=== PATIENT | male | born 1975 | race American Indian/Alaskan Native ===

== ENCOUNTER 2018-03-12 20:37 | Emergency (ER) | payer SELFPAY ==
[2018-03-12 21:30] LABS: Basophils % (Auto) 0.3 % (0.0-1.8); Eosinophils % (Auto) 0.1 % (0.0-4.3); Hematocrit 48.8 % (35.5-45.6); Hemoglobin 16.2 gm/dl (11.8-15.2); Lymphocytes # (Auto) 2.3 K/mm3 (1.2-5.4); Lymphocytes % (Auto) 18.9 % (13.4-35.0); Mean Corpuscular HGB Conc 33 % (32-34); Mean Corpuscular Volume 86 fl (84-94); Monocytes # (Auto) 0.9 K/mm3 (0.0-0.8); Monocytes % (Auto) 7.3 % (0.0-7.3); Platelet Count 303 K/mm3 (140-440); Red Blood Count 5.68 M/mm3 (3.65-5.03); Red Cell Distribution Width 14.1 % (13.2-15.2)
[2018-03-12 21:33] LABS: Amphetamine Screen,Urine PRESUMPTIVE NEGATIVE; Benzodiazepines Screen,Urine PRESUMPTIVE NEGATIVE; Cannabinoid Screen,Urine PRESUMPTIVE NEGATIVE; Cocaine Screen,Urine PRESUMPTIVE NEGATIVE; Methadone Screen,Urine PRESUMPTIVE NEGATIVE; Opiate Screen,Urine PRESUMPTIVE NEGATIVE
[2018-03-12 21:34] LABS: Bacteria,Urine 1+ /HPF (Negative); Bilirubin,Urine NEG (Negative); Blood,Urine NEG (Negative); Color,Urine Amber (Yellow); Mucus,Urine 2+ /HPF
[2018-03-12 21:44] LABS: BUN/Creatinine Ratio 18; Blood Urea Nitrogen 24 mg/dL (9-20); Calcium 9.7 mg/dL (8.4-10.2); Hemolysis Index 11
--- NOTE | 2018-03-12 22:12 | Emergency Department Report ---
ED Psych HPI - General Chief Complaint: Psych Stated Complaint: MH Time Seen by Provider: 03/12/18 21:21 Source: patient Mode of arrival: Ambulatory Limitations: No Limitations - History of Present Illness Initial Comments: 42-year-old male with a past medical history of schizophrenia and bipolar disorder presents also complains of worsening depression and hallucinations for several months. Patient works at a [employer] and states that starting to int erfere with his ability perform his job. He has auditory hallucinations of people moaning and also visual hallucinations. He denies suicidal or homicidal ideation. He denies any physical complaints. He is not taking any psychiatric medications for several months. - Related Data Previous Rx's Medication Instructions Recorded Last Taken Type Cyclobenzaprine [Flexeril] 10 mg PO TID PRN #20 tablet 02/28/18 Unknown Rx traMADol [Ultram] 50 mg PO Q6HR PRN #20 tablet 02/28/18 Unknown Rx Allergies Allergy/AdvReac Type Severity Reaction Status Date / Time No Known Allergies Allergy Unverified 02/28/18 12:48 ED Review of Systems ROS: Stated complaint: MH Other details as noted in HPI Comment: All other systems reviewed and negative ED Past Medical Hx - Past Medical History Previous Medical History?: Yes Hx Psychiatric Treatment: Yes (schizophrenia and bipolar) - Surgical History Past Surgical History?: Yes Hx Appendectomy: Yes - Social History Smoking Status: Current Some Day Smoker Substance Use Type: None - Medications Home Medications: Home Medications Medication Instructions Recorded Confirmed Last Taken Type Cyclobenzaprine [Flexeril] 10 mg PO TID PRN #20 tablet 02/28/18 03/13/18 Unknown Rx traMADol [Ultram] 50 mg PO Q6HR PRN #20 tablet 02/28/18 03/13/18 Unknown Rx ED Physical Exam - General Limitations: No Limitations - Other Other exam information: General: No limitations, patient is alert in no acute distress Head exam: Atraumatic, normocephalic Eyes exam: Normal appearance ENT: Moist mucous membrane Neck exam: Normal inspection, full range of motion, no meningismus nontender Respiratory exam: Clear to auscultation bilateral, no wheezes, rales, crackles Cardiovascular: Normal rate and rhythm, normal heart sounds Abdomen: Soft, nondistended, and nontender, with normal bowel sounds, no rebound, or guarding Extremity: Full range of motion normal inspection no deformity Back: Normal Inspection, full range of motion, no tenderness Neurologic: Alert, oriented x3, cranial nerves intact, no motor or sensory deficit Psychiatric: normal affect, normal mood Skin: Warm, dry, intact ED Course Vital Signs 03/12/18 03/13/18 21:02 02:08 Temperature 98.6 F 98.8 F Pulse Rate 99 H 96 H Respiratory 18 Rate Blood Pressure 149/96 Blood Pressure 131/90 [Left] O2 Sat by Pulse 96 96 Oximetry - Consultations Consultation #1: 03/13/18 00:43 pt expressed to evaluation Rolando that he is not currently suicidal plans had fleeting thoughts of suicide and feels like if he doesn't get help sewn he will be suicidal. 1013 was signed ED Medical Decision Making - Lab Data Result diagrams: 03/12/18 21:17 03/12/18 21:17 Lab Results 03/12/18 03/12/18 03/12/18 Range/Units 21:15 21:15 21:17 WBC (4.5-11.0) K/mm3 RBC (3.65-5.03) M/mm3 Hgb (11.8-15.2) gm/dl Hct (35.5-45.6) % MCV (84-94) fl MCH (28-32) pg MCHC (32-34) % RDW (13.2-15.2) % Plt Count (140-440) K/mm3 Lymph % (Auto) (13.4-35.0) % [place] % (Auto) (0.0-7.3) % Eos % (Auto) (0.0-4.3) % Baso % (Auto) (0.0-1.8) % Lymph # (1.2-5.4) K/mm3 [place] # (0.0-0.8) K/mm3 Eos # (0.0-0.4) K/mm3 Baso # (0.0-0.1) K/mm3 Seg Neutrophils % (40.0-70.0) % Seg Neutrophils # (1.8-7.7) K/mm3 Sodium (137-145) mmol/L Potassium (3.6-5.0) mmol/L Chloride (98-107) mmol/L Carbon Dioxide (22-30) mmol/L Anion Gap mmol/L BUN (9-20) mg/dL Creatinine (0.8-1.5) mg/dL Estimated GFR ml/min BUN/Creatinine Ratio % Glucose (75-100) mg/dL Calcium (8.4-10.2) mg/dL Urine Color [place] (Yellow) Urine Turbidity Slightly-cloudy (Clear) Urine pH 5.0 (5.0-7.0) Ur Specific [place] 1.034 H (1.003-1.030) Urine Protein 100 mg/dl (Negative) mg/dL Urine Glucose (UA) Neg (Negative) mg/dL Urine Ketones 80 (Negative) mg/dL Urine Blood Neg (Negative) Urine Nitrite Neg (Negative) Urine Bilirubin Neg (Negative) Urine Urobilinogen 4.0 (<2.0) mg/dL Ur Leukocyte Esterase Mod (Negative) Urine WBC (Auto) 61.0 H (0.0-6.0) /HPF Urine RBC (Auto) 10.0 (0.0-6.0) /HPF U Epithel Cells (Auto) 2.0 (0-13.0) /HPF Urine Bacteria (Auto) 1+ (Negative) /HPF Urine Mucus 2+ /HPF Salicylates < 0.3 L (2.8-20.0) mg/dL Urine Opiates Screen Presumptive negative Urine Methadone Screen Presumptive negative Acetaminophen (10.0-30.0) ug/mL Ur Barbiturates Screen Presumptive negative Ur Phencyclidine Scrn Presumptive negative Ur Amphetamines Screen Presumptive negative U Benzodiazepines Scrn Presumptive negative Urine Cocaine Screen Presumptive negative U Marijuana (THC) Screen Presumptive negative Drugs of Abuse Note Disclamer Plasma/Serum Alcohol (0-0.07) % 03/12/18 03/12/18 03/12/18 Range/Units 21:17 21:17 21:17 WBC (4.5-11.0) K/mm3 RBC (3.65-5.03) M/mm3 Hgb (11.8-15.2) gm/dl Hct (35.5-45.6) % MCV (84-94) fl MCH (28-32) pg MCHC (32-34) % RDW (13.2-15.2) % Plt Count (140-440) K/mm3 Lymph % (Auto) (13.4-35.0) % [place] % (Auto) (0.0-7.3) % Eos % (Auto) (0.0-4.3) % Baso % (Auto) (0.0-1.8) % Lymph # (1.2-5.4) K/mm3 [place] # (0.0-0.8) K/mm3 Eos # (0.0-0.4) K/mm3 Baso # (0.0-0.1) K/mm3 Seg Neutrophils % (40.0-70.0) % Seg Neutrophils # (1.8-7.7) K/mm3 Sodium 140 (137-145) mmol/L Potassium 4.3 (3.6-5.0) mmol/L Chloride 102.7 (98-107) mmol/L Carbon Dioxide 21 L (22-30) mmol/L Anion Gap 21 mmol/L BUN 24 H (9-20) mg/dL Creatinine 1.3 (0.8-1.5) mg/dL Estimated GFR > 60 ml/min BUN/Creatinine Ratio 18 % Glucose 104 H (75-100) mg/dL Calcium 9.7 (8.4-10.2) mg/dL Urine Color (Yellow) Urine Turbidity (Clear) Urine pH (5.0-7.0) Ur Specific [place] (1.003-1.030) Urine Protein (Negative) mg/dL Urine Glucose (UA) (Negative) mg/dL Urine Ketones (Negative) mg/dL Urine Blood (Negative) Urine Nitrite (Negative) Urine Bilirubin (Negative) Urine Urobilinogen (<2.0) mg/dL Ur Leukocyte Esterase (Negative) Urine WBC (Auto) (0.0-6.0) /HPF Urine RBC (Auto) (0.0-6.0) /HPF U Epithel Cells (Auto) (0-13.0) /HPF Urine Bacteria (Auto) (Negative) /HPF Urine Mucus /HPF Salicylates (2.8-20.0) mg/dL Urine Opiates Screen Urine Methadone Screen Acetaminophen < 5.0 L (10.0-30.0) ug/mL Ur Barbiturates Screen Ur Phencyclidine Scrn Ur Amphetamines Screen U Benzodiazepines Scrn Urine Cocaine Screen U Marijuana (THC) Screen Drugs of Abuse Note Plasma/Serum Alcohol < 0.01 (0-0.07) % 03/12/18 Range/Units 21:17 WBC 12.4 H (4.5-11.0) K/mm3 RBC 5.68 H (3.65-5.03) M/mm3 Hgb 16.2 H (11.8-15.2) gm/dl Hct 48.8 H (35.5-45.6) % MCV 86 (84-94) fl MCH 29 (28-32) pg MCHC 33 (32-34) % RDW 14.1 (13.2-15.2) % Plt Count 303 (140-440) K/mm3 Lymph % (Auto) 18.9 (13.4-35.0) % [place] % (Auto) 7.3 (0.0-7.3) % Eos % (Auto) 0.1 (0.0-4.3) % Baso % (Auto) 0.3 (0.0-1.8) % Lymph # 2.3 (1.2-5.4) K/mm3 [place] # 0.9 H (0.0-0.8) K/mm3 Eos # 0.0 (0.0-0.4) K/mm3 Baso # 0.0 (0.0-0.1) K/mm3 Seg Neutrophils % 73.4 H (40.0-70.0) % Seg Neutrophils # 9.1 H (1.8-7.7) K/mm3 Sodium (137-145) mmol/L Potassium (3.6-5.0) mmol/L Chloride (98-107) mmol/L Carbon Dioxide (22-30) mmol/L Anion Gap mmol/L BUN (9-20) mg/dL Creatinine (0.8-1.5) mg/dL Estimated GFR ml/min BUN/Creatinine Ratio % Glucose (75-100) mg/dL Calcium (8.4-10.2) mg/dL Urine Color (Yellow) Urine Turbidity (Clear) Urine pH (5.0-7.0) Ur Specific [place] (1.003-1.030) Urine Protein (Negative) mg/dL Urine Glucose (UA) (Negative) mg/dL Urine Ketones (Negative) mg/dL Urine Blood (Negative) Urine Nitrite (Negative) Urine Bilirubin (Negative) Urine Urobilinogen (<2.0) mg/dL Ur Leukocyte Esterase (Negative) Urine WBC (Auto) (0.0-6.0) /HPF Urine RBC (Auto) (0.0-6.0) /HPF U Epithel Cells (Auto) (0-13.0) /HPF Urine Bacteria (Auto) (Negative) /HPF Urine Mucus /HPF Salicylates (2.8-20.0) mg/dL Urine Opiates Screen Urine Methadone Screen Acetaminophen (10.0-30.0) ug/mL Ur Barbiturates Screen Ur Phencyclidine Scrn Ur Amphetamines Screen U Benzodiazepines Scrn Urine Cocaine Screen U Marijuana (THC) Screen Drugs of Abuse Note Plasma/Serum Alcohol (0-0.07) % - Medical Decision Making Urine and BMP indicating mild dehydration. By mouth fluids intake encouraged. Bactrim order for UTI awaiting Psychiatric evaluation - Differential Diagnosis psychosis, noncompliance, depression Critical Care Time: No Critical care attestation.: If time is entered above; I have spent that time in minutes in the direct care of this critically ill patient, excluding procedure time. ED Disposition Clinical Impression: Psychosis, Suicidal thoughts, Noncompliance with medication regimen, Bipolar disease, chronic, Depressed, Schizophrenia, UTI (urinary tract infection) Disposition: OP ADMIT IP TO THIS HOSP Is pt being admited?: No Condition: Stable Time of Disposition: 05:57 (awaiting acceptance)
[2018-03-13] MEDS: BACTRIM DS PO SCH ×3 (01:58→21:51)
--- NOTE | 2018-03-13 14:04 | Consultation ---
History of Present Illness - Reason for Consult Consult date: 03/13/18 Reason for consult: Initial Psychiatric Evaluation - Chief Complaint Chief complaint: " voices" - History of Present Psychiatric Illness Patient is a 42-year-old male with a past psychiatric history of schizoaffective disorder, bipolar type. Patient presents to the emergency room with auditory hallucinations. Today the patient is guarded with thought blocking during the assessment. Patient unable to express his thoughts. Limited speech noted. Appears paranoid- looking around as if he is suspicious of others. Per record patient works at a [employer] and states that starting to interfere with his ability perform his job. He has auditory hallucinations of people moaning and visual hallucinations. Will reattempt to assess patient on 03-14-17. Per staff patient appears paranoid. Current Psychiatric Medications: Unable to Assess. Past Psychiatric History: Unable to Assess. Past Psychiatric Medication Trials: Unable to Assess. History of Trauma/Abuse: Unable to Assess. History of Drug/ Alcohol Abuse: Unable to Assess. UDS negative. Social History: Unable to Assess. Family History of Psychiatric Illness/ Substance Abuse: Unable to Assess. Medications and Allergies Allergies Allergy/AdvReac Type Severity Reaction Status Date / Time No Known Allergies Allergy Unverified 02/28/18 12:48 Home Medications Medication Instructions Recorded Confirmed Last Taken Type Cyclobenzaprine [Flexeril] 10 mg PO TID PRN #20 tablet 02/28/18 03/13/18 Unknown Rx traMADol [Ultram] 50 mg PO Q6HR PRN #20 tablet 02/28/18 03/13/18 Unknown Rx Active Meds: Active Medications Trimethoprim/Sulfamethoxazole (Bactrim Ds) 1 each PO Q12HR DANILO Stop: 03/17/18 10:01 Last Admin: 03/13/18 10:43 Dose: 1 each Documented by: Mental Status Exam - Vital signs Last Vital Signs Temp 98.8 F 03/13/18 02:08 Pulse 96 H 03/13/18 02:08 Resp 18 03/13/18 02:08 BP 131/90 03/13/18 02:08 Pulse Ox 96 03/13/18 02:08 - Exam Narrative exam: Mental Status Exam Appearance: dressed- hospital gown Behavior: regular eye contact Speech: mute Mood: unable to assess Affect: unable to assess Thought Process: thought blocking Thought Content: + AH's, paranoid delusions Motor Activity: ambulatory/retarded Cognition: alert; unable to assess orientation Insight: variable Judgment: variable Results Result Diagrams: 03/12/18 21:17 03/12/18 21:17 Abnormal lab results 03/12/18 03/12/18 03/12/18 Range/Units 21:15 21:17 21:17 WBC (4.5-11.0) K/mm3 RBC (3.65-5.03) M/mm3 Hgb (11.8-15.2) gm/dl Hct (35.5-45.6) % [place] # (0.0-0.8) K/mm3 Seg Neutrophils % (40.0-70.0) % Seg Neutrophils # (1.8-7.7) K/mm3 Carbon Dioxide (22-30) mmol/L BUN (9-20) mg/dL Glucose (75-100) mg/dL POC Glucose (70-105) Ur Specific [place] 1.034 H (1.003-1.030) Urine WBC (Auto) 61.0 H (0.0-6.0) /HPF Salicylates < 0.3 L (2.8-20.0) mg/dL Acetaminophen < 5.0 L (10.0-30.0) ug/mL 03/12/18 03/12/18 03/13/18 Range/Units 21:17 21:17 08:15 WBC 12.4 H (4.5-11.0) K/mm3 RBC 5.68 H (3.65-5.03) M/mm3 Hgb 16.2 H (11.8-15.2) gm/dl Hct 48.8 H (35.5-45.6) % Simpson # 0.9 H (0.0-0.8) K/mm3 Seg Neutrophils % 73.4 H (40.0-70.0) % Seg Neutrophils # 9.1 H (1.8-7.7) K/mm3 Carbon Dioxide 21 L (22-30) mmol/L BUN 24 H (9-20) mg/dL Glucose 104 H (75-100) mg/dL POC Glucose 109 H (70-105) Ur Specific [place] (1.003-1.030) Urine WBC (Auto) (0.0-6.0) /HPF Salicylates (2.8-20.0) mg/dL Acetaminophen (10.0-30.0) ug/mL All other labs normal. Assessment and Plan Assessment and plan: Impression: PPHx schizoaffective disorder, bipolar type. Today the patient is guarded with thought blocking during the assessment. Provider unable to fully assess. Patient appears paranoid. Recommendation/Plan: 1. Continue 1013. 2. Gain collateral to determine proper disposition. 3. Start Ativan 1mg po TID catatonia. Discussed the side effects with patient. Will start anti-psychotic when patient is more verbal. Disposition: Patient is pending placement on region 3.
[2018-03-13] MEDS ORDERED: ATIVAN ONE (15:42)
[2018-03-13] MEDS ORDERED: ATIVAN IM ONE (15:45)
[2018-03-13] MEDS: ATIVAN PO SCH (20:11)
[2018-03-14] MEDS ORDERED: XYLOCAINE 1% MPF 5 mL INFILTRATI ONE (02:57)
[2018-03-14] MEDS ORDERED: ROCEPHIN 1,000 MG in NACL 0.9% 50 ML IV ONE (02:57)
[2018-03-14 03:25] LABS: Basophils % (Auto) 0.3 % (0.0-1.8); Eosinophils # (Auto) 0.1 K/mm3 (0.0-0.4); Eosinophils % (Auto) 0.6 % (0.0-4.3); Hematocrit 49.4 % (35.5-45.6); Hemoglobin 16.4 gm/dl (11.8-15.2); Lymphocytes # (Auto) 1.9 K/mm3 (1.2-5.4); Lymphocytes % (Auto) 17.3 % (13.4-35.0); Mean Corpuscular HGB Conc 33 % (32-34); Mean Corpuscular Volume 88 fl (84-94); Monocytes # (Auto) 0.8 K/mm3 (0.0-0.8); Monocytes % (Auto) 7.7 % (0.0-7.3); Platelet Count 262 K/mm3 (140-440); Red Blood Count 5.64 M/mm3 (3.65-5.03); Red Cell Distribution Width 14.3 % (13.2-15.2)
[2018-03-14] MEDS ORDERED: ROCEPHIN/NS 1 GM/50 ML 1 GM/50 ML BAG IV SCH (04:00)
[2018-03-14 04:13] LABS: Alanine Aminotransferase 41 units/L (7-56); Albumin 4.6 g/dL (3.9-5); BUN/Creatinine Ratio 20; Blood Urea Nitrogen 22 mg/dL (9-20); Calcium 9.4 mg/dL (8.4-10.2); Hemolysis Index 19
[2018-03-14] MEDS: ATIVAN PO SCH ×4 (08:32→22:19)
[2018-03-14] MEDS: BACTRIM DS PO SCH ×2 (11:00→22:19)
--- NOTE | 2018-03-14 13:37 | Progress Note ---
Subjective - Reason for Consult Consult date: 03/14/18 Reason for consult: Psychiatric Follow-up Evaluation - Chief Complaint Chief complaint: " I'm ready to go" Patient is a 42-year-old male with a past psychiatric history of schizoaffective disorder, bipolar type. Patient presents to the emergency room with auditory hallucinations. On 03-13-18 patient had to be given PRN for agitation. Patient needs constant redirection. Today the patient is guarded with thought blocking during the assessment.While whispering patient states " I'm still hearing the voices a little bit. I'm ready to go." Patient has attempted to escape 3 times within the last 24 hours. Patient can be seen eating with prompting. Patient continues to have paranoid delusion- suspicious of others. Mental Status Exam - Vital signs Last Vital Signs Temp 97.9 F 03/14/18 07:00 Pulse 109 H 03/14/18 07:00 Resp 14 03/14/18 07:00 BP 149/100 03/14/18 07:00 Pulse Ox 95 03/14/18 07:00 - Exam Narrative exam: Mental Status Exam Appearance: dressed- hospital gown Behavior: regular eye contact Speech: mute; whispering Mood: " I'm ready to go" Affect: unable to assess Thought Process: thought blocking Thought Content: + AH's, paranoid delusions Motor Activity: ambulatory/retarded Cognition: alert; unable to assess orientation Insight: variable Judgment: variable Assessment and Plan Impression: PPHx schizoaffective disorder, bipolar type. Today the patient is guarded with thought blocking during the assessment. Provider unable to fully assess. Patient appears paranoid and internally preoccupied. Recommendation/Plan: 1. Continue 1013. 2. Gain collateral to determine proper disposition. 3. Increase Ativan 1mg po QID catatonia. Discussed the side effects with patient. Once catatonia resolves/improves an anti-psychotic will be introduced to the drug regimen. Disposition: Patient is pending placement on region 3. Staffed with Dr. Carlos Terrazas.
[2018-03-15 09:01] LABS: BUN/Creatinine Ratio 18; Blood Urea Nitrogen 23 mg/dL (9-20); Calcium 9.4 mg/dL (8.4-10.2); Hemolysis Index 8
[2018-03-15] MEDS ORDERED: ZESTRIL PO ONE (09:17)
[2018-03-15] MEDS: BACTRIM DS PO SCH ×2 (09:31→23:40)
[2018-03-15] MEDS: ATIVAN PO SCH ×4 (09:31→23:40)
--- NOTE | 2018-03-15 09:34 | Progress Note ---
Subjective - Reason for Consult Consult date: 03/15/18 Reason for consult: Psychiatry Follow-up - Chief Complaint Chief complaint: "Pavan" Patient is a 42-year-old male with a past psychiatric history of schizoaffective disorder, bipolar type. Patient presents to the emergency room with auditory hallucinations. Today the patient is thought blocking and disorganized during the assessment. His answers to questions were not logical. He speak very low, possibly responding to some type of stimuli. He does acknowledge hearing voices telling him to "possibly" kill himself. No gestures of HI's. Mental Status Exam - Vital signs Last Vital Signs Temp 98.5 F 03/15/18 08:27 Pulse 106 H 03/15/18 08:27 Resp 18 03/15/18 08:29 BP 151/109 03/15/18 08:27 Pulse Ox 95 03/15/18 08:29 - Exam Narrative exam: MSE: Appearance: calm Behavior: intermittent stare Speech: regular rate and tone Mood: preoccupied Affect: constricted Thought Process: thought blocking Thought Content: No gestures of HI's, disorganized, paranoid Motor Activity: ambulatory Cognition: A/O x 3 Insight: poor Judgment: poor Assessment and Plan Impression: Schizoaffective DO. Catatonia. Today the patient is thought blocking and disorganized during the assessment. DDx: Bipolar DO with psychosis Recommendation/Plan: Continue 1013 and Ativan 1 mg PO QID for catatonia. Once catatonia resolves/improves an anti-psychotic will be introduced to the drug r darby. Dispo: The patient was referred to inpatient psy services. Will staff with Dr White.
[2018-03-15 19:57] LABS: Basophils % (Auto) 0.2 % (0.0-1.8); Eosinophils # (Auto) 0.2 K/mm3 (0.0-0.4); Eosinophils % (Auto) 1.6 % (0.0-4.3); Hemoglobin 15.3 gm/dl (11.8-15.2); Mean Corpuscular HGB Conc 33 % (32-34); Mean Corpuscular Volume 87 fl (84-94); Monocytes # (Auto) 0.7 K/mm3 (0.0-0.8); Monocytes % (Auto) 6.4 % (0.0-7.3); Platelet Count 279 K/mm3 (140-440); Red Blood Count 5.31 M/mm3 (3.65-5.03); Red Cell Distribution Width 14.1 % (13.2-15.2)
[2018-03-15 20:12] LABS: Alanine Aminotransferase 40 units/L (7-56); Albumin 4.2 g/dL (3.9-5); BUN/Creatinine Ratio 17; Blood Urea Nitrogen 24 mg/dL (9-20); Calcium 9.2 mg/dL (8.4-10.2); Hemolysis Index 5
[2018-03-16] MEDS: BACTRIM DS PO SCH ×2 (10:37→22:01)
[2018-03-16] MEDS: ATIVAN PO SCH ×2 (10:37→22:00)
--- NOTE | 2018-03-16 11:42 | Progress Note ---
Addendum entered and electronically signed by NAVDEEP RIVERA NP 03/17/18 07:58: Recommendation/Plan: D/C'd Zyprexa, the patient's CK is trending upward 1215. ER MD notified of CK level. Will consider home medication (antipsychotic) once CK normalize. Original Note: Subjective - Reason for Consult Consult date: 03/16/18 Reason for consult: Psychiatry Follow-up - Chief Complaint Chief complaint: "I feel much better" Patient is a 42-year-old male with a past psychiatric history of schizoaffective disorder, bipolar type. Patient presents to the emergency room with auditory hallucinations. Today the patient is calm and cooperative during the assessment. He stated that he have experienced being "frozen" (catatonia) in the past. He stated not seeing a psychiatrist in 6 months since moving from [place], [place]. He stated that he was prescribed Risperdal for Schizoaffective DO. He stated that he would like to take Zyprexa because he don't like the possible side effects of Risperdal (gynecomastia). He denies SI/HI's and VH's. He stated that the voices are decreasing. Mental Status Exam - Vital signs Last Vital Signs Temp 98.3 F 03/16/18 01:00 Pulse 88 03/16/18 01:00 Resp 18 03/16/18 01:00 BP 121/70 03/16/18 01:00 Pulse Ox 95 03/16/18 01:00 - Exam Narrative exam: MSE: Appearance: calm, cooperative Behavior: regular eye contact Speech: regular rate and tone Mood: "okay" Affect: congruent to mood Thought Process: more organized Thought Content: denies SI/HI's and VH's Motor Activity: ambulatory Cognition: A/O x 3 Insight: fair Judgment: fair Assessment and Plan Impression: Schizoaffective DO. Catatonia on admission to the ER. Today the patient is calm and cooperative during the assessment. DDx: Bipolar DO with psychosis Recommendation/Plan: Reevaluate 1013 in 24 hours. Modified Ativan to 1 mg BID for tapering purposes, the patient catatonia have resolved. Start Zyprexa 5 mg PO HS for mood/psychosis. Discussed possible metabolic side effects of Zyprexa with the patient. Dispo: If the patient's 1013 is rescinded, he can follow up with [facility] for outpatient psy services. Will staff with Dr White.
[2018-03-17] MEDS ORDERED: NACL 0.9% 1000 ML 1,000 ML IV ONE (07:55)
[2018-03-17 08:19] LABS: Basophils % (Auto) 0.4 % (0.0-1.8); Eosinophils # (Auto) 0.3 K/mm3 (0.0-0.4); Eosinophils % (Auto) 3.1 % (0.0-4.3); Hematocrit 47.8 % (35.5-45.6); Hemoglobin 15.9 gm/dl (11.8-15.2); Lymphocytes # (Auto) 3.2 K/mm3 (1.2-5.4); Lymphocytes % (Auto) 34.7 % (13.4-35.0); Mean Corpuscular HGB Conc 33 % (32-34); Mean Corpuscular Volume 86 fl (84-94); Monocytes # (Auto) 0.6 K/mm3 (0.0-0.8); Monocytes % (Auto) 6.9 % (0.0-7.3); Platelet Count 266 K/mm3 (140-440); Red Blood Count 5.56 M/mm3 (3.65-5.03); Red Cell Distribution Width 13.8 % (13.2-15.2)
[2018-03-17] MEDS ORDERED: ROCEPHIN/NS 1 GM/50 ML 1 GM/50 ML BAG IV ONE (08:30)
[2018-03-17 08:39] LABS: Creatine Kinase MB 16.5 ng/mL (0.0-4.0)
[2018-03-17 08:42] LABS: Alanine Aminotransferase 44 units/L (7-56); Albumin 4.1 g/dL (3.9-5); BUN/Creatinine Ratio 12; Blood Urea Nitrogen 15 mg/dL (9-20); Calcium 9.1 mg/dL (8.4-10.2); Hemolysis Index 16
[2018-03-17 08:49] LABS: Bilirubin,Direct < 0.2 mg/dL (0-0.2)
[2018-03-17] MEDS: ATIVAN PO SCH (09:40)
[2018-03-17] MEDS: BACTRIM DS PO SCH (09:41)
--- NOTE | 2018-03-17 16:44 | Progress Note ---
Subjective - Reason for Consult Consult date: 03/17/18 Reason for consult: follow up - Chief Complaint Chief complaint: "I'm ready to go." Patient is a 42-year-old male with a past psychiatric history of schizoaffective disorder, bipolar type. Patient presents to the emergency room with auditory hallucinations. It was also reported he had suicidal ideation without a plan. Today the patient is calm and cooperative during the assessment. He stated that he has experienced catatonia in the past. He has not seen a psychiatrist in 6 months since moving from [place], [place]. He stated that he was prescribed Risperdal for Schizoaffective DO. He stated that he would like to take Zyprexa because he don't like the possible side effects of Risperdal (gynecomastia). Zyprexa was held last night. Ck was 1281. In response, the ER physician ordered fluids. He denies physical complaints. He states he is doing well mentally and wants to return home to his fiance. This [employer] spoke with his fiance Abigail Johnson. She did not have any concerns about him returning home. She wants to pick him up later this afternoon. He reports auditory hallucinations are not distressing and non commanding. He denies suicidal or homicidal ideation. He states he is eating and sleeping well. He is completing ADLs without difficulty. Mental Status Exam - Vital signs Last Vital Signs Temp 98.0 F 03/17/18 08:40 Pulse 89 03/17/18 08:40 Resp 18 03/17/18 08:40 BP 117/81 03/17/18 08:40 Pulse Ox 97 03/17/18 08:40 - Exam Narrative exam: MSE: Appearance: calm, cooperative Behavior: regular eye contact Speech: regular rate and tone Mood: "good" Affect: congruent to mood Thought Process: organized Thought Content: denies SI/HI. non command/non distressing AH Motor Activity: ambulatory. no abnormal movements. gait is steady Cognition: A/O x 3 Insight: fair Judgment: fair Assessment and Plan Impression: Schizoaffective DO. Catatonia on admission to the ER. Today the patient is calm and cooperative during the assessment. CK 1281 03/17/2017 and he was given IVF since then. He denies physical complaints. He is completing ADLs without difficulty. He is no longer exhibiting signs of catatonia. No abnormal movements observed. He does not meet criteria for inpatient psychiatric treatment. No acute safety concerns were identified. He has had one dose of zyprexa and will hold off due to ck. UDS negative but does not rule out substance induced psychotic disorder DDx: Bipolar DO with psychosis. Recommendation/Plan: repeat CK and hold zyprexa tonight. -ER physician to address ck discontinue ativan and monitor response psych will follow up in 24 hours Dispo: Rescind 1013 Once discharged, plan to follow up at the [facility] for outpatient psy services. Will staff with Dr White.
[2018-03-17 18:11] VITALS: BP 118/82
== END 2018-03-17 18:57 | disposition admitted as inpatient to this hospital (09) ==
LOC: ED 20:37 → EEVIPCON 20:37 → ED 03-17 18:57
DX: F31.9 Bipolar disorder, unspecified (principal); N39.0 Urinary tract infection, site not specified; F29 Unspecified psychosis not due to a substance or known physiological condition; Z91.14 Patient's other noncompliance with medication regimen; F32.9 Major depressive disorder, single episode, unspecified
CPT/HCPCS: 36415; 80048; 80053; 80076; 80307; 81001; 82140; 82550; 82553; 82962; 84100; 85025; 96365; 96372; 99284; G0480; J0696; J2060; J7030; 80320

== ENCOUNTER 2018-06-14 18:16 | Emergency (ER) | payer OTHER ==
--- NOTE | 2018-06-14 18:40 | Emergency Department Report ---
Blank Doc - Documentation Documentation: This is a 43-year-old male that presents with rash to right back area and chest. This initial assessment/diagnostic orders/clinical plan/treatment(s) is/are subject to change based on patient's health status, clinical progression and re- assessment by fellow clinical providers in the ED. Further treatment and workup at subsequent clinical providers discretion. Patient/guardians urged not to elope from the ED as their condition may be serious if not clinically assessed and managed. Initial orders include: 1- Patient sent to [facility] for further evaluation and treatment
[2018-06-14] MEDS ORDERED: NORCO 5/325 PO ONE (23:18)
[2018-06-14] MEDS ORDERED: XYLOCAINE TOPICAL 2% 30ML TP ONE (23:18)
--- NOTE | 2018-06-14 23:39 | Emergency Department Report ---
ED General Adult HPI - General Chief complaint: Skin/Abscess/Foreign Body Stated complaint: POSSIBLE SHINGLES Time Seen by Provider: 06/14/18 18:38 Source: patient Mode of arrival: Ambulatory Limitations: No Limitations - History of Present Illness Initial comments: This is a 43-year-old male that presents with rash to right back area and chest. Onset/Timin -: days(s) Location: chest, back, abdomen Radiation: non-radiation Severity scale (0 -10): 10 Quality: burning, sharp Consistency: constant Improves with: none Worsens with: none Associated Symptoms: denies other symptoms Treatments Prior to Arrival: none - Related Data Previous Rx's Medication Instructions Recorded Last Taken Type Cyclobenzaprine [Flexeril] 10 mg PO TID PRN #20 tablet 02/28/18 Unknown Rx traMADol [Ultram] 50 mg PO Q6HR PRN #20 tablet 02/28/18 Unknown Rx Acetaminophen/Codeine [Tylenol 1 tab PO Q6H PRN #12 tab 06/14/18 Unknown Rx /Codeine # 3 tab] Lidocaine [Lidocaine OINT] 50 gm TP TID PRN #1 tube 06/14/18 Unknown Rx Valacyclovir HCl [Valtrex] 1,000 mg PO TID 10 Days #30 tablet 06/14/18 Unknown Rx Allergies Allergy/AdvReac Type Severity Reaction Status Date / Time No Known Allergies Allergy Verified 06/14/18 18:39 ED Review of Systems ROS: Stated complaint: POSSIBLE SHINGLES Other details as noted in HPI Constitutional: denies: chills, fever Eyes: denies: eye pain, eye discharge, vision change ENT: denies: ear pain, throat pain Respiratory: denies: cough, shortness of breath, wheezing Cardiovascular: denies: chest pain, palpitations Endocrine: no symptoms reported Gastrointestinal: denies: abdominal pain, nausea, diarrhea Genitourinary: denies: urgency, dysuria Musculoskeletal: denies: back pain, joint swelling, arthralgia Skin: as per HPI, rash (chest trunk, abd ) Neurological: denies: headache, weakness, paresthesias Psychiatric: denies: anxiety, depression Hematological/Lymphatic: denies: easy bleeding, easy bruising ED Past Medical Hx - Past Medical History Hx Psychiatric Treatment: Yes (schizophrenia and bipolar) - Surgical History Hx Appendectomy: Yes - Social History Smoking Status: Former Smoker Substance Use Type: None - Medications Home Medications: Home Medications Medication Instructions Recorded Confirmed Last Taken Type Cyclobenzaprine [Flexeril] 10 mg PO TID PRN #20 tablet 02/28/18 03/13/18 Unknown Rx traMADol [Ultram] 50 mg PO Q6HR PRN #20 tablet 02/28/18 03/13/18 Unknown Rx Acetaminophen/Codeine [Tylenol 1 tab PO Q6H PRN #12 tab 06/14/18 Unknown Rx /Codeine # 3 tab] Lidocaine [Lidocaine OINT] 50 gm TP TID PRN #1 tube 06/14/18 Unknown Rx Valacyclovir HCl [Valtrex] 1,000 mg PO TID 10 Days #30 tablet 06/14/18 Unknown Rx ED Physical Exam - General Limitations: No Limitations General appearance: alert, in no apparent distress - Head Head exam: Present: atraumatic, normocephalic - Eye Eye exam: Present: normal appearance - ENT ENT exam: Present: normal orophraynx, mucous membranes moist - Neck Neck exam: Present: normal inspection, full ROM. Absent: lymphadenopathy - Respiratory Respiratory exam: Present: normal lung sounds bilaterally. Absent: respiratory distress, wheezes, stridor, chest wall tenderness - Cardiovascular Cardiovascular Exam: Present: regular rate, normal rhythm, normal heart sounds. Absent: systolic murmur, diastolic murmur, rubs, gallop - GI/Abdominal GI/Abdominal exam: Present: soft, normal bowel sounds. Absent: tenderness, bruit, hernia - Rectal Rectal exam: Present: deferred - Extremities Exam Extremities exam: Present: normal inspection, full ROM. Absent: tenderness - Back Exam Back exam: Present: normal inspection, full ROM. Absent: tenderness - Neurological Exam Neurological exam: Present: alert, oriented X3, CN II-XII intact, normal gait, reflexes normal - Psychiatric Psychiatric exam: Present: normal affect, normal mood - Skin Skin exam: Present: warm, dry, intact, normal color, rash (back chest abd moderate erythem vesicular no weeping no open lesion no feever or chills ) ED Course Vital Signs 06/14/18 18:39 Temperature 98.4 F Pulse Rate 97 H Respiratory 16 Rate Blood Pressure 150/90 O2 Sat by Pulse 96 Oximetry ED Medical Decision Making - Medical Decision Making this is shingles rash Critical care attestation.: If time is entered above; I have spent that time in minutes in the direct care of this critically ill patient, excluding procedure time. ED Disposition Clinical Impression: Shingles Qualifiers: Herpes zoster complications: without complications Qualified Code(s): B02.9 - Zoster without complications Disposition: - TO HOME OR SELFCARE Is pt being admited?: No Does the pt Need Aspirin: No Condition: Stable Instructions: Herpes Zoster (ED) Prescriptions: Lidocaine [Lidocaine OINT] 50 gm TP TID PRN #1 tube PRN Reason: pain Acetaminophen/Codeine [Tylenol /Codeine # 3 tab] 1 tab PO Q6H PRN #12 tab PRN Reason: pain Valacyclovir HCl [Valtrex] 1,000 mg PO TID 10 Days #30 tablet Referrals: [facility] [Outside] - 3-5 Days [facility] [Outside] - 3-5 Days Forms: Work/School Release Form(ED) Time of Disposition: 23:46
[2018-06-14] MEDS: VALTREX PO ONE (23:52)
[2018-06-15 00:01] VITALS: BP 147/81
== END 2018-06-15 | disposition home or self-care (01) ==
LOC: ED 18:16
DX: B02.9 Zoster without complications (principal); F31.9 Bipolar disorder, unspecified; F20.9 Schizophrenia, unspecified; Z87.891 Personal history of nicotine dependence; Z90.89 Acquired absence of other organs
CPT/HCPCS: 99282

== ENCOUNTER 2018-10-17 11:25 | Outpatient (CLI) | payer OTHER ==
[2018-10-17 12:43] LABS: Alanine Aminotransferase 16 units/L (7-56); BUN/Creatinine Ratio 15; Blood Urea Nitrogen 16 mg/dL (9-20); Calcium 10.1 mg/dL (8.4-10.2)
[2018-10-17 12:44] LABS: Albumin 5.1 g/dL (3.9-5); Hemolysis Index 0
== END 2018-10-17 11:26 | disposition home or self-care (01) ==
LOC: LAB 11:25
PROVIDERS: ATTEND Family Medicine
DX: R07.9 Chest pain, unspecified (principal)
CPT/HCPCS: 36415; 80053; 84484; 85379

== ENCOUNTER 2018-12-11 11:33 | Outpatient (CLI) | payer OTHER ==
--- NOTE | 2018-12-11 14:02 | Cat Scan Report ---
CT HEAD WITHOUT CONTRAST INDICATION / CLINICAL INFORMATION: Altered mental status. CONFUSION. TECHNIQUE: All CT scans at this location are performed using CT dose reduction for ALARA by means of automated e xposure control. COMPARISON: None available. FINDINGS: HEMORRHAGE: No evidence of intracranial hemorrhage or extra-axial fluid collection. EXTRA-AXIAL SPACES: Cortical sulci, sylvian fissures and basilar cisterns have an unremarkable appear ance. VENTRICULAR SYSTEM: The ventricular system is of normal size and configuration. CEREBRAL PARENCHYMA: No areas of abnormal brain parenchymal attenuation are identified. There is no i ndication of recent infarction. MIDLINE SHIFT OR HERNIATION: There is no mass effect. CEREBELLUM / BRAINSTEM: Brainstem and cerebellum have an unremarkable appearance. INTRACRANIAL VESSELS:No abnormalities are identified on this noncontrast head CT. ORBITS: visualized portions of the orbits have an unremarkable appearance. SOFT TISSUES of HEAD: No significant abnormality. CALVARIUM: Evaluation of bone windows reveals no abnormalities. PARANASAL SINUSES / MASTOID AIR CELLS: Paranasal sinuses are free from inflammatory mucosal disease. Mastoid air cells are normally pneumatized. IMPRESSION: 1. No abnormalities are identified on head CT without contrast. Signer Name: Jero Singh MD Signed: 12/11/2018 1:57 PM Workstation Name: [id number]
== END 2018-12-11 11:34 | disposition home or self-care (01) ==
LOC: CT 11:33
PROVIDERS: ATTEND Family Medicine
DX: R41.82 Altered mental status, unspecified (principal)
CPT/HCPCS: 70450

== ENCOUNTER 2019-07-19 09:04 | Emergency (ER) | payer SELFPAY ==
[2019-07-19 09:13] VITALS: BP 128/89
--- NOTE | 2019-07-19 10:12 | Emergency Department Report ---
HPI - General Chief Complaint: Psych Time Seen by Provider: 07/19/19 09:58 - HPI HPI: 44-year-old male presents to the emergency department for what he says is an anxiety attack earlier today. The patient says he was tearful and was breathing heavily with some chest tightness. That has since resolved. He says that there is no particular thing that he is feeling anxious about but does have a history of anxiety. He also appears to have a history of bipolar disorder and schizophrenia. He denies any suicidal or homicidal ideations or any hallucinati ons. Patient says that he previously was on Cogentin and Prolixin when he was incarcerated but it has been about 3 to 4 months since he was last on any medication. He does not have any primary care physician or psychiatrist for outpatient follow-up at this time. Denies any illicit drug use. He did not take anything for symptoms prior to presentation. ED Past Medical Hx - Past Medical History Previous Medical History?: Yes Hx Psychiatric Treatment: Yes (schizophrenia and bipolar) - Surgical History Past Surgical History?: Yes Hx Appendectomy: Yes - Social History Smoking Status: Former Smoker Substance Use Type: None - Medications Home Medications: Home Medications Medication Instructions Recorded Confirmed Last Taken Type Cyclobenzaprine [Flexeril] 10 mg PO TID PRN #20 tablet 02/28/18 03/13/18 Unknown Rx traMADoL [Ultram] 50 mg PO Q6HR PRN #20 tablet 02/28/18 03/13/18 Unknown Rx Acetaminophen/Codeine [Tylenol 1 tab PO Q6H PRN #12 tab 06/14/18 Unknown Rx /Codeine # 3 tab] Lidocaine [Lidocaine OINT] 50 gm TP TID PRN #1 tube 06/14/18 Unknown Rx Valacyclovir HCl [Valtrex] 1,000 mg PO TID 10 Days #30 tablet 06/14/18 Unknown Rx ED Review of Systems ROS: Stated complaint: WEAK/DEHYDRATED Other details as noted in HPI Comment: All other systems reviewed and negative Constitutional: denies: chills, fever Eyes: denies: eye pain, vision change ENT: denies: ear pain, throat pain Respiratory: shortness of breath (resolved). denies: cough Cardiovascular: chest pain (resolved). denies: edema Gastrointestinal: denies: abdominal pain, vomiting Genitourinary: denies: dysuria, discharge Musculoskeletal: denies: back pain, arthralgia Neurological: denies: headache, weakness Psychiatric: denies: auditory hallucinations, visual hallucinations, homicidal thoughts, suicidal thoughts Physical Exam - Physical Exam Vital Signs: Vital Signs 07/19/19 09:10 Temperature 98 F Pulse Rate 85 Respiratory 20 Rate Blood Pressure 128/89 [Right] O2 Sat by Pulse 100 Oximetry Physical Exam: GENERAL: The patient is well-developed well-nourished. HENT: Normocephalic. Atraumatic. Patient has moist mucous membranes. EYES: Extraocular motions are intact. NECK: Supple. Trachea is midline. CHEST/LUNGS: Clear to auscultation. There is no respiratory distress noted. HEART/CARDIOVASCULAR: Regular. There is no tachycardia. There is no murmur. ABDOMEN: Abdomen is soft, nontender. Patient has normal bowel sounds. There is no abdominal distention. SKIN: Skin is warm and dry. NEURO: The patient is awake, alert, and oriented. The patient is cooperative. The patient has no focal neurologic deficits. Normal speech. MUSCULOSKELETAL: There is no tenderness or deformity. There is no evidence of acute injury. ED Course Vital Signs 07/19/19 09:10 Temperature 98 F Pulse Rate 85 Respiratory 20 Rate Blood Pressure 128/89 [Right] O2 Sat by Pulse 100 Oximetry ED Medical Decision Making - Lab Data Result diagrams: 07/19/19 10:26 07/19/19 10:26 - EKG Data -: EKG Interpreted by Me EKG shows normal: sinus rhythm, axis, intervals, QRS complexes, ST-T waves Rate: normal - EKG Data When compared to previous EKG there are: previous EKG unavailable Interpretation: normal EKG - Radiology Data Radiology results: image reviewed interpreted by me: Chest x-ray does not show any acute process. There are no pleural effusions, obvious pneumonia and there is no pneumothorax. - Medical Decision Making This patient presents for what he says is an anxiety/panic attack. He had some chest tightness, heavy breathing and was tearful, all which has since resolved. The patient does have a history of bipolar disorder and has not been on medications in the past 3 months. On examination heart and lung sounds are normal to auscultation. The patient does not appear in any respiratory or acute distress. A chest x-ray was done that was normal without any morphology consistent with ST elevation SC or any significant dysrhythmia. Chest x-ray did not show any pneumonia, pleural effusions or pneumothorax. Labs were unremarkable including negative troponin and normal thyroid function. His vital signs have been stable throughout his ED course including being afebrile. Patient will be discharged home to follow-up with the [facility] regarding his bipolar disorder history and being restarted on his medications. He will return to the emergency department with any return or worsening of his symptoms, or with any acute distress. I did discuss the incidental pulmonary nodule with this patient. He has been instructed to follow-up with primary care and to provide these discharge instructions so that the nodule can be further evaluated in the outpatient s etting. Critical Care Time: No Critical care attestation.: If time is entered above; I have spent that time in minutes in the direct care of this critically ill patient, excluding procedure time. ED Disposition Clinical Impression: History of bipolar disorder, Anxiety attack, Pulmonary nodule Disposition: TO HOME OR SELFCARE Is pt being admited?: No Condition: Stable Instructions: Bipolar Disorder (ED), Pulmonary Nodules (ED), Anxiety (ED) Additional Instructions: Please follow-up with the [facility] regarding your history of bipolar disorder, your anxiety and panic attacks, and to restart your previous psychiatric medications. Return to the emergency department with any worsening of your symptoms, thoughts of harming your self or others, or with any acute distress. Referrals: [facility] [Outside] - 2-3 Days [facility] [Provider Group] - 2-3 Days Time of Disposition: 11:04
[2019-07-19 10:36] LABS: Basophils % (Auto) 0.2 % (0.0-1.8); Eosinophils # (Auto) 0.1 K/mm3 (0.0-0.4); Hematocrit 47.1 % (35.5-45.6); Hemoglobin 16.1 gm/dl (11.8-15.2); Mean Corpuscular HGB Conc 34 % (32-34); Mean Corpuscular Volume 86 fl (84-94); Monocytes # (Auto) 0.6 K/mm3 (0.0-0.8); Monocytes % (Auto) 10.1 % (0.0-7.3); Platelet Count 245 K/mm3 (140-440); Red Blood Count 5.45 M/mm3 (3.65-5.03)
--- NOTE | 2019-07-19 10:38 | XRay Report ---
CHEST 2 VIEWS INDICATION / CLINICAL INFORMATION: Chest tightness. COMPARISON: None available. FINDINGS: SUPPORT DEVICES: None. HEART / MEDIASTINUM: No significant abnormality. LUNGS / PLEURA: There is a 7 mm nodular density in the right midlung zone seen on the frontal view on ly. The left lung is clear. .No pneumothorax. ADDITIONAL FINDINGS: No significant additional findings. IMPRESSION: 1. There is a 7 mm nodular density in the right midlung zone. In the absence of prior imaging, CT maurice ging of the chest is recommended to further evaluate. Signer Name: Jed Humphreys MD Signed: 07/19/2019 10:34 AM Workstation Name: [id number]
[2019-07-19 11:00] LABS: BUN/Creatinine Ratio 11; Blood Urea Nitrogen 10 mg/dL (9-20); Calcium 9.4 mg/dL (8.4-10.2); Hemolysis Index 24
== END 2019-07-19 11:19 | disposition home or self-care (01) ==
LOC: ED 09:04
DX: R91.1 Solitary pulmonary nodule (principal); F41.9 Anxiety disorder, unspecified; F31.9 Bipolar disorder, unspecified; Z90.49 Acquired absence of other specified parts of digestive tract; Z87.891 Personal history of nicotine dependence; Z79.899 Other long term (current) drug therapy
CPT/HCPCS: 36415; 71046; 80048; 84443; 84484; 85025